=== PATIENT | female | born 1965 | race Caucasian/White ===

== ENCOUNTER → 2022-03-09 | Emergency (ER) | payer SELFPAY ==
[~2022-03-09] VITALS: Ht 165.1 cm; Wt 77.3 kg
[2022-03-09 17:16] VITALS: TEMP 98.3
[2022-03-09 21:52] VITALS: BP 136/88; PULSE 88
== END ==
LOC: COL.ER 17:13
DX: S82.61XA Displaced fracture of lateral malleolus of right fibula, initial encounter for closed fracture (principal); S62.337A Displaced fracture of neck of fifth metacarpal bone, left hand, initial encounter for closed fracture; Z28.310 Unvaccinated for COVID-19; V86.09XA Driver of other special all-terrain or other off-road motor vehicle injured in traffic accident, initial encounter; Y92.410 Unspecified street and highway as the place of occurrence of the external cause
CPT/HCPCS: J2270; J3010; Q9967